=== PATIENT | female | born 1995 | race Caucasian/White ===

== ENCOUNTER 2020-08-11 10:55 | Emergency (ER) | payer OTHER ==
[~2020-08-11] VITALS: Ht 172.7 cm; Wt 68.0 kg
[2020-08-11] MEDS ORDERED: ADDERALL 10 MG10 MG PO (11:08)
[2020-08-11 11:38] VITALS: BP 112/71
== END 2020-08-11 11:39 | disposition home or self-care (01) ==
LOC: M.ERS 10:55
DX: R53.1 Weakness (principal); Z20.828 Contact with and (suspected) exposure to other viral communicable diseases; R53.83 Other fatigue; Z79.899 Other long term (current) drug therapy; Z88.2 Allergy status to sulfonamides